=== PATIENT | male | born 1955 | race Caucasian/White ===

== ENCOUNTER 2016-11-23 07:20 | Day surgery (SDC) | payer BC ==
--- NOTE | ~2016-11-23 | EGD ---
EGD REPORT [facility] [address] [address] NAME: MANUEL SALCIDO : [birth year] STATUS : REG [facility]#: [id number] AGE: 61 ADM/REG DATE : 11/23/16 MR#: [id number] REPORT SERV DATE: 11/23/16 DICTATED BY: ROMAN JETER DATE: 11/23/16 REPORT STATUS : Draft TRANSCRIBED BY: [employer] DATE: 11/23/16 [facility] Patient Name: Manuel Salcido Date of : 1955 Attending MD: ROMAN JETER MD Procedure Date No Time: 11/23/2016 Procedure: Upper GI endoscopy Indications: Follow-up of Pacheco's esophagus Referring MD: SYBIL BRIDGES MD Medicines: as per anesthesia Complications: No immediate complications. Procedure: Pre-Anesthesia Assessment: - ASA Grade Assessment: IV - A patient with severe systemic disease that is a constant threat to life. After obtaining informed consent, the endoscope was passed under direct vision. Throughout the procedure, the patient's blood pressure, pulse, and oxygen saturations were monitored continuously. The GIF [id number] was introduced through the mouth, and advanced to the third part of duodenum. The upper GI endoscopy was accomplished without difficulty. The patient tolerated the procedure. 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 The maximum longitudinal extent of these mucosal changes was 2 cm in length. Mucosa was biopsied with a cold forceps for histology randomly at intervals of 1 cm in the lower third of the esophagus. One specimen bottle was sent to pathology. The entire examined stomach was normal. The cardia and gastric fundus were normal on retroflexion. The examined duodenum was normal. Impression: - Esophageal mucosal changes secondary to established short-segment Pacheco's disease. Biopsied. - Normal stomach. - Normal examined duodenum. Recommendation: - Await pathology results. - Follow an antireflux regimen. - Continue present medications. Procedure Code(s): --- Professional --- 20392, Esophagogastroduodenoscopy, flexible, transoral; EGD REPORT [address] [place]. [address] NAME: MANUEL SALCIDO : [birth year] STATUS : [place] [facility] [place] PAT#: [id number] AGE: 61 ADM/REG DATE : 11/23/16 MR#: [id number] REPORT SERV DATE: 11/23/16 DICTATED BY: ROMAN JETER. DATE: 11/23/16 REPORT STATUS : Draft TRANSCRIBED BY: [employer] DATE: 11/23/16 with biopsy, single or multiple Diagnosis Code(s): --- Professional --- K22.70, Pacheco's esophagus without dysplasia CPT copyright 2013 [employer]. All rights reserved. The codes documented in this report are preliminary and upon coder operator review may be revised to meet current compliance requirements. ROMAN JETER MD 11/23/2016 9:51 AM This report has been signed electronically. Number of Addenda: 0 Note Initiated On: 11/23/2016 9:35 AM Scope Withdrawal Time 0 hours 0 minutes 0 seconds [id number] [facility] [place] [address]
[~2016-11-23 07:20] MED LIST: ADVAIR HFA INH; ADVAIR INH; ADVAIR230P INH; BUM1 PO; CLARIT10 PO; DELSYM30 MG/5 ML PO; DUONEB INH; EFFEX37.5 PO; KAPIDEX60 MG PO; KLONO5 PO; LISINOPRIL PO; MEDROLPAK4; MUCINEX600 MG PO; NORCO1 TA2 PO; OMNICEF300 PO; P5 PO; PREDNISONE2.5 MG PO; PRINZIDE1 TAB PO; PROAIR HFA INH; SEROQUEL25 PO; SOMA250 MG PO; SOMATAB PO; STERAPRED DS10 MG; SYMBICORT 160/41 INH INH; T200 PO; VENTOLIN HFA INH; X5 PO; XANAX1 MG PO; XARELTO10 MG PO; XARELTO20 MG PO; ZESTORETIC1 TAB PO
== END 2016-11-23 23:59 | disposition home or self-care (01) ==
LOC: DMU 07:20
PROVIDERS: Internal Medicine Gastroenterology
PROC: 0DB38ZX Excision of Lower Esophagus, Via Natural or Artificial Opening Endoscopic, Diagnostic (ICD-10-PCS; principal; 2016-11-23 09:30)
DX: K22.70 Barrett's esophagus without dysplasia (principal); I10 Essential (primary) hypertension; G47.33 Obstructive sleep apnea (adult) (pediatric); J44.9 Chronic obstructive pulmonary disease, unspecified; K21.9 Gastro-esophageal reflux disease without esophagitis; F17.210 Nicotine dependence, cigarettes, uncomplicated; F41.9 Anxiety disorder, unspecified; Z99.89 Dependence on other enabling machines and devices; Z88.1 Allergy status to other antibiotic agents; Z90.89 Acquired absence of other organs; Z90.49 Acquired absence of other specified parts of digestive tract; Z79.52 Long term (current) use of systemic steroids; Z79.51 Long term (current) use of inhaled steroids; Z79.899 Other long term (current) drug therapy; Z98.890 Other specified postprocedural states
CPT/HCPCS: 88305; 94640